=== PATIENT | male | born 1970 | race Caucasian/White ===

== ENCOUNTER 2019-07-14 15:14 | Emergency (ER) | payer BC ==
[2019-07-14] MEDS ORDERED: Ondansetron 4 MG/2 ML SDV IVPUSH ONE ×2 (16:27→18:29)
[2019-07-14] MEDS ORDERED: Morphine 2 MG/ML Syringe IVPUSH ONE ×2 (16:27→17:59)
[2019-07-14 16:35] LABS: CHLORIDE,CL 99 mmol/L (98-107); SODIUM,NA 137 mmol/L (136-145)
--- NOTE | 2019-07-14 16:35 | EDM.PDOC ---
ED HPI GENERAL MEDICAL PROBLEM - General Chief Complaint: Chest Pain Stated Complaint: abdominal pain Time Seen by Provider: 07/14/19 15:27 Source of Information: Reports: Patient History Limitations: Reports: No Limitations - History of Present Illness INITIAL COMMENTS - FREE TEXT/NARRATIVE: Patient presents with complaint of abdominal and back pain that started around 1am last night. Has had multiple small loose stools, non-bloody. Abdominal pain improves a bit after bowel movements. Pain was severe and crampy at times , currently has improved to a 3/10. Has nausea but no emesis. Noted to have low grade fever in ER. Denies HEENT changes/runny nose/ST/URI complaints. No chest/respiratory changes. Denies chest pain although initially nurse thought patient had chest pain as main complaint when he first presented. Has chronic upper and lower back pain which is a bit worse today. Abdominal pain now is worst in the RLQ area. Denies UTI complaints/urinary changes/hematuria. No limb pain/weakness/numbness. - Related Data Allergies Allergy/AdvReac Type Severity Reaction Status Date / Time No Known Allergies Allergy Verified 07/14/19 15:20 Home Meds: Home Meds Aspirin 81 mg PO QAM 07/14/19 [History] Metoprolol Succinate 12.5 mg PO BEDTIME 07/14/19 [History] atorvaSTATin Calcium [Atorvastatin Calcium] 20 mg PO BEDTIME 07/14/19 [History] clonazePAM [Clonazepam] 1 mg PO Q12HR 07/14/19 [History] Past Medical History Cardiovascular History: Reports: High Cholesterol, Hypertension Musculoskeletal History: Reports: Back Pain, Chronic (upper and lower back) Endocrine/Metabolic History: Reports: Obesity/BMI 30+ Social & Family History - Tobacco Use Smoking Status *Q: Never Smoker - Caffeine Use Caffeine Use: Reports: Coffee - Alcohol Use Alcohol Use History: Yes Alcohol Use Frequency: Socially - Recreational Drug Use Recreational Drug Use: No Drug Use in Last 12 Months: No ED ROS GENERAL - Review of Systems Review Of Systems: Comprehensive ROS is negative, except as noted in HPI. ED EXAM, GENERAL - Physical Exam Exam: See Below Exam Limited By: No Limitations General Appearance: Alert, Mild Distress, Obese Eye Exam: Bilateral Eye: EOMI, PERRL Ears: Hearing Grossly Normal Nose: No: Nasal Deformity, Nasal Swelling, Nasal Drainage Throat/Mouth: Normal Lips, Normal Voice, No Airway Compromise Head: Atraumatic, Normocephalic Neck: Supple, Non-Tender, Full Range of Motion Respiratory/Chest: No Respiratory Distress, Lungs Clear, Normal Breath Sounds, No Accessory Muscle Use, Chest Non-Tender Cardiovascular: Normal Peripheral Pulses, Regular Rate, Rhythm, No Murmur GI/Abdominal: Soft, Tender (some tenderness in all quadrants, worse in RLQ. ), Abnormal Bowel Sounds (decreased). No: Rigid, Rebound (Male) Exam: Deferred Rectal (Males) Exam: Deferred Back Exam: No: CVA Tenderness (L), CVA Tenderness (R), Muscle Spasm, Paraspinal Tenderness, Vertebral Tenderness Extremities: Non-Tender, Normal Capillary Refill, Other (equal tone/strength bilaterally) Neurological: Alert, Oriented, Normal Cognition Psychiatric: Normal Affect, Normal Mood Skin Exam: Warm, Dry, Intact, Normal Color Course - Vital Signs Last Recorded V/S: Last Vital Signs Temp 38.0 C 07/14/19 19:21 Pulse 118 H 07/14/19 19:21 Resp 20 07/14/19 19:21 BP 124/68 07/14/19 19:21 Pulse Ox 97 07/14/19 19:21 - Orders/Labs/Meds Orders: Active Orders 24 hr Category Date Time Status Abdomen Pelvis w Cont [CT] Stat Exams 07/14/19 16:40 Taken Abdomen Series w Chest 1V [CR] Stat Exams 07/14/19 15:28 Taken Saline Lock Insert [OM.PC] Routine Oth 07/14/19 16:34 Ordered Labs: Laboratory Tests 07/14/19 07/14/19 07/14/19 Range/Units 16:15 16:15 16:15 WBC 13.6 H (4.0-10.2) K/uL RBC 5.19 (4.33-5.41) M/uL Hgb 15.9 (13.1-16.8) g/dL Hct 45.6 (39.0-49.0) % MCV 87.9 (84.0-98.0) fL MCH 30.6 (28.2-33.3) pg MCHC 34.9 (31.7-36.0) g/dL RDW 12.9 (11.2-14.1) % Plt Count 114 L (150-350) K/uL Neut % (Auto) 93.6 H (45.0-80.0) % Lymph % (Auto) 3.9 L (10.0-50.0) % Keith % (Auto) 2.3 (2.0-14.0) % Eos % (Auto) 0.1 (0.0-5.0) % Baso % (Auto) 0.1 (0.0-2.0) % Neut # (Auto) 12.78 H (1.40-7.00) K/uL Lymph # (Auto) 0.53 (0.50-3.50) K/uL Keith # (Auto) 0.31 (0.00-1.00) K/uL Eos # (Auto) 0.01 (0.00-0.50) K/uL Baso # (Auto) 0.01 (0.00-0.20) K/uL Sodium 137 (136-145) mmol/L Potassium 3.8 (3.5-5.1) mmol/L Chloride 99 (98-107) mmol/L Carbon Dioxide 24.6 (21.0-32.0) mmol/L BUN 22 H (7-18) mg/dL Creatinine 0.91 (0.51-1.17) mg/dL Est Cr Clr Drug Dosing 109.75 mL/min Estimated GFR (MDRD) > 60 mL/min Glucose 117 H (74-106) mg/dL Lactic Acid 2.5 H (0.4-2.0) mmol/L Calcium 8.8 (8.5-10.1) mg/dL Magnesium 1.6 L (1.8-2.4) mg/dL Total Bilirubin 1.3 H (0.2-1.0) mg/dL AST 34 (15-37) U/L ALT 100 H (12-78) U/L Alkaline Phosphatase 70 (46-116) IU/L Total Protein 7.7 (6.4-8.2) g/dL Albumin 4.2 (3.4-5.0) g/dL Specimen Type Urine Color Urine Appearance Urine pH (5.0-9.0) Ur Specific [place] (1.005-1.030) Urine Protein (NEGATIVE) mg/dL Urine Glucose (UA) (NEGATIVE) mg/dL Urine Ketones (NEGATIVE) mg/dL Urine Occult Blood (NEGATIVE) Urine Nitrite (NEGATIVE) Urine Bilirubin (NEGATIVE) Urine Urobilinogen (0.2-1.0) E.U./dL Ur Leukocyte Esterase (NEGATIVE) Urine RBC /HPF Urine WBC /HPF Ur Epithelial Cells /LPF Urine Bacteria (NONE TO FEW) /HPF 07/14/19 Range/Units 17:29 WBC (4.0-10.2) K/uL RBC (4.33-5.41) M/uL Hgb (13.1-16.8) g/dL Hct (39.0-49.0) % MCV (84.0-98.0) fL MCH (28.2-33.3) pg MCHC (31.7-36.0) g/dL RDW (11.2-14.1) % Plt Count (150-350) K/uL Neut % (Auto) (45.0-80.0) % Lymph % (Auto) (10.0-50.0) % Keith % (Auto) (2.0-14.0) % Eos % (Auto) (0.0-5.0) % Baso % (Auto) (0.0-2.0) % Neut # (Auto) (1.40-7.00) K/uL Lymph # (Auto) (0.50-3.50) K/uL Keith # (Auto) (0.00-1.00) K/uL Eos # (Auto) (0.00-0.50) K/uL Baso # (Auto) (0.00-0.20) K/uL Sodium (136-145) mmol/L Potassium (3.5-5.1) mmol/L Chloride (98-107) mmol/L Carbon Dioxide (21.0-32.0) mmol/L BUN (7-18) mg/dL Creatinine (0.51-1.17) mg/dL Est Cr Clr Drug Dosing mL/min Estimated GFR (MDRD) mL/min Glucose (74-106) mg/dL Lactic Acid (0.4-2.0) mmol/L Calcium (8.5-10.1) mg/dL Magnesium (1.8-2.4) mg/dL Total Bilirubin (0.2-1.0) mg/dL AST (15-37) U/L ALT (12-78) U/L Alkaline Phosphatase (46-116) IU/L Total Protein (6.4-8.2) g/dL Albumin (3.4-5.0) g/dL Specimen Type Urinblad Urine Color Yellow Urine Appearance Clear Urine pH 5.0 (5.0-9.0) Ur Specific [place] <= 1.005 (1.005-1.030) Urine Protein Negative (NEGATIVE) mg/dL Urine Glucose (UA) Negative (NEGATIVE) mg/dL Urine Ketones Negative (NEGATIVE) mg/dL Urine Occult Blood Small H (NEGATIVE) Urine Nitrite Negative (NEGATIVE) Urine Bilirubin Negative (NEGATIVE) Urine Urobilinogen 0.2 (0.2-1.0) E.U./dL Ur Leukocyte Esterase Negative (NEGATIVE) Urine RBC 0-5 /HPF Urine WBC 0-5 /HPF Ur Epithelial Cells Rare /LPF Urine Bacteria Rare (NONE TO FEW) /HPF Meds: Medications Discontinued Medications Generic Name Dose Route Start Last Admin Trade Name Freq PRN Reason Stop Dose Admin Hydromorphone HCl 1 mg 07/14/19 19:24 07/14/19 19:30 Dilaudid IVPUSH 07/14/19 19:25 1 mg ONETIME ONE Administration Sodium Chloride 1,000 mls @ 999 mls/hr 07/14/19 16:40 07/14/19 16:40 Normal Saline IV 07/14/19 17:40 999 mls/hr .BOLUS ONE Administration Ertapenem 1 gm/ Sodium 100 mls @ 200 mls/hr 07/14/19 17:55 07/14/19 18:19 Chloride IV 07/14/19 18:24 200 mls/hr ONETIME ONE Administration Sodium Chloride 1,000 mls @ 250 mls/hr 07/14/19 18:14 07/14/19 18:19 Normal Saline IV 07/14/19 22:13 250 mls/hr .BOLUS ONE Administration Magnesium Sulfate/Dextrose 1 100 mls @ 100 mls/hr 07/14/19 18:14 07/14/19 19: 08 gm/ Premix IV 07/14/19 19:13 100 mls/hr ONETIME ONE Administration Iopamidol 100 ml 07/14/19 16:46 07/14/19 17:22 Isovue-300 (61%) IVPUSH 07/14/19 16:47 100 ml ONETIME ONE Administration Morphine Sulfate 4 mg 07/14/19 16:27 07/14/19 16:31 Morphine IVPUSH 07/14/19 16:28 4 mg ONETIME ONE Administration Morphine Sulfate 4 mg 07/14/19 17:59 07/14/19 18:24 Morphine IVPUSH 07/14/19 18:00 4 mg ONETIME ONE Administration Ondansetron HCl 4 mg 07/14/19 16:27 07/14/19 16:33 Zofran IVPUSH 07/14/19 16:28 4 mg ONETIME ONE Administration Ondansetron HCl 4 mg 07/14/19 18:29 07/14/19 18:33 Zofran IVPUSH 07/14/19 18:30 4 mg ONETIME ONE Administration Promethazine HCl 25 mg 07/14/19 19:25 07/14/19 19:30 Phenergan IM 07/14/19 19:26 25 mg ONETIME ONE Administration Sodium Chloride 10 ml 07/14/19 16:34 07/14/19 18:35 Saline Flush FLUSH 10 ml ASDIRECTED PRN Administration Keep Vein Open - Radiology Interpretation CT Results Date: 07/14/19 CT Results Time: 17:33 - Re-Assessments/Exams Free Text/Narrative Re-Assessment/Exam: 07/14/19 18:15 Elevated WBC/Lactic acid. Plain films initially obtained but CT added to rule out appy. + for Appendicitis per Radiology. MS improved pain. IV fluids given. Call placed to [facility] and patient accepted for transfer by . Waiting for bed confirmation at this time. Invanz ordered. If time permits prior to transfer will start Magnesium as patient is low at 1.6. Will be transferred by EMS once bed at [facility] is assigned. Departure - Departure Time of Disposition: 20:04 Disposition: DC/Tfer to Acute Hospital 02 Condition: Good Clinical Impression: Hypomagnesemia Appendicitis, acute Qualifiers: Acute appendicitis type: with localized peritonitis Appendicitis gangrene presence: unspecified whether gangrene present Appendicitis perforation presence : without perforation Appendicitis abscess presence: without abscess Qualified Code(s): K35.30 - Acute appendicitis with localized peritonitis, without perforation or gangrene - Discharge Information *PRESCRIPTION DRUG MONITORING PROGRAM REVIEWED*: Not Applicable *COPY OF PRESCRIPTION DRUG MONITORING REPORT IN PATIENT TAMIKO: Not Applicable Instructions: Appendicitis, Adult, Ertapenem injection, Ondansetron injection, Magnesium Sulfate injection, Morphine injection solution Referrals: PCP,Not In Area [Primary Care Provider] - Forms: ED Department Discharge Sepsis Event Note - Focused Exam Vital Signs: Vital Signs Temp Temp Pulse Resp BP Pulse Ox Pulse Ox 07/14/19 19:21 38.0 C 118 H 20 124/68 97 07/14/19 18:45 100 07/14/19 18:40 89 L 07/14/19 16:30 111 H 20 146/86 H 100 07/14/19 16:09 38.3 C H 111 H 20 155/79 H 93 L 07/14/19 15:30 38.0 C 106 H 20 139/78 100 07/14/19 15:15 38.0 C 99 18 138/75 100 Date Exam was Performed: 07/14/19 Time Exam was Performed: 20:03 - My Orders Last 24 Hours: My Active Orders 07/14/19 15:28 Abdomen Series w Chest 1V [CR] Stat 07/14/19 16:34 Saline Lock Insert [OM.PC] Routine 07/14/19 16:40 Abdomen Pelvis w Cont [CT] Stat - Assessment/Plan Last 24 Hours: My Active Orders 07/14/19 15:28 Abdomen Series w Chest 1V [CR] Stat 07/14/19 16:34 Saline Lock Insert [OM.PC] Routine 07/14/19 16:40 Abdomen Pelvis w Cont [CT] Stat
[2019-07-14] MEDS ORDERED: Sodium Chloride 0.9% 1,000 ML IV ONE ×2 (16:40→18:14)
[2019-07-14] MEDS ORDERED: Iopamidol 612 MG/ML 100 ML Bottle IVPUSH ONE (16:46)
[2019-07-14] MEDS ORDERED: Ertapenem 1 GM in Sodium Chloride 0.9% 100 ML IV ONE (17:55)
[2019-07-14] MEDS: Sodium Chloride 0.9% 10 ML Syringe FLUSH PRN ×2 (18:28→18:35)
[2019-07-14] MEDS ORDERED: HYDROmorphone 1 MG/ML Syringe IVPUSH ONE (19:24)
[2019-07-14] MEDS ORDERED: Promethazine 25 MG/ML SDV IM ONE (19:25)
== END 2019-07-14 19:40 ==
LOC: LL.ED 15:14
DX: K35.30 Acute appendicitis with localized peritonitis, without perforation or gangrene (principal); E83.42 Hypomagnesemia; E78.00 Pure hypercholesterolemia, unspecified; I10 Essential (primary) hypertension; E66.9 Obesity, unspecified; Z68.33 Body mass index [BMI] 33.0-33.9, adult; Z79.899 Other long term (current) drug therapy; Z79.82 Long term (current) use of aspirin
CPT/HCPCS: 36415; 74022; 74177; 80053; 81001; 83605; 83735; 85025; 96361; 96365; 96367; 96372; 96375; 96376; 99285-25; J1170; J1335; J2270; J2405; J2550; J3475; J7030; J7050; Q9967